=== PATIENT | male | born 1985 | race Caucasian/White ===

== ENCOUNTER 2024-12-24 11:07 | Outpatient (CLI) | payer OTHER, SELFPAY ==
--- NOTE | 2024-12-24 11:00 | RT.EKG_ITS ---
APPROVED REPORT Exam: Resting ECG Reason for Exam: Dizziness Patient Location: O HR:82 bpm ECG Measurements Heart Rate 82 AXIS LA 137 P 45 QRSd 81 QRS 60 QT 342 T 33 QTc 400 Conclusion Sinus rhythm...normal P axis, V-rate 50- 99 Ventricular premature complex...V complex w/ short R-R interval Otherwise normal ECG
== END 2024-12-24 11:08 | disposition home or self-care (01) ==
LOC: DI.CM 11:08
PROVIDERS: Visit Provider Physician Assistant
DX: R07.89 Other chest pain (principal); R42 Dizziness and giddiness
CPT/HCPCS: 93010

== ENCOUNTER 2024-12-24 12:02 | Emergency (ER) | payer OTHER, SELFPAY ==
[2024-12-24] VITALS (7 sets, daily range): BP systolic 122–138; BP diastolic 76–85; PULSE 73–91; RESP 16; TEMP 36.9–37.1; O2SAT 93–97
--- NOTE | 2024-12-24 12:15 | RT.EKG_ITS ---
APPROVED REPORT Exam: Resting ECG Reason for Exam: dizziness Patient Location: E HR:81 bpm ECG Measurements Heart Rate 81 AXIS WA 145 P 36 QRSd 80 QRS 57 QT 330 T 46 QTc 385 Conclusion Sinus rhythm...normal P axis, V-rate 60- 99 ST elev, probable normal early repol pattern...ST elevation, age<55
--- NOTE | 2024-12-24 14:35 | DI.US_ITS ---
Exam(s) US LOWER EXTREMITY VENOUS LT EXAM: US LOWER EXTREMITY VENOUS LT CLINICAL HISTORY: left leg swelling. TECHNIQUE: Lower extremity venous ultrasound performed using grayscale, color- flow, and spectral Doppler analysis. COMPARISON: No exams were available for comparison FINDINGS: The common femoral, femoral and popliteal veins demonstrate normal compressibility, augmentation, and color Doppler. The posterior tibial and peroneal veins are patent. No saphenous vein thrombosis is seen. There is a dilated superficial vein in the posterior calf in the area of the patient's pain which contains thrombus. No hematoma or Gee's cyst is seen. IMPRESSION: Superficial thrombophlebitis in the calf region.. No evidence of DVT. DATA REPOSITORY:
[2024-12-24 15:51] LABS: Abs Immature Grans 0.02 10^3/uL (0.0-0.06); HCT 44.0 % (40.0-50.0); HGB 15.4 g/dL (13.5-17.5); Immature Grans % 0.2 %; MCH 31.0 pg (27.0-33.0); MCHC 35.0 % (32.0-36.0); MCV 89 fL (80-95); MPV 8.8 fL (8.0-11.0); Platelet Count 201 10^3/uL (130-400); RBC 4.96 10^6/uL (4.36-5.78); RDW 12.1 % (11.8-14.1); RDW-SD 39.6 fL; WBC 8.87 10^3/uL (4.4-10.8)
--- NOTE | 2024-12-24 15:52 | W.ED.GENAD ---
Discharge Plan Disposition Patient Disposition: Home Condition: Good Discharge Details Clinical Impression: Near syncope, Dehydration, Superficial thrombophlebitis Primary Care Provider: Unknown,Unknown ED Provider: Philippe Burden Home Meds and New Rx's Prescriptions: New cephalexin 500 mg capsule 500 mg PO QID 5 Days Qty: 20 0RF Discharge Instructions Instructions: Superficial vein phlebitis and thrombosis, Near Fainting Additional Instructions: At this time your CT scan results show no evidence of blood clot or other significant abnormality. Your laboratory workup is otherwise reassuring. I am concerned that you may have had mild dehydration which could be causing your symptoms. However there is always still concern that there could be a mild cardiac change. Our respiratory therapy department will contact you to follow-up to have a 48-hour heart monitor to make sure there is no funny heart dysrhythmias. Additionally, you do have evidence of mild asthma on my exam. Please take the inhaler, 1 to 2 puffs every 6 hours as needed for shortness of breath. Please follow-up closely with your primary care provider for reassessment. In addition to this, you also have superficial thrombophlebitis which are small clots in your varicose veins. Please apply heat/warm compresses to these to help them reabsorb. Take Tylenol and Motrin as needed for pain. You can take a 325 aspirin daily for the next week to help them reabsorb as well. However this will make you bleed slightly more easily. Please take the antibiotic Keflex to help with any early infection that can occur from these. If you notice any worsening of your symptoms, or any new symptoms such as vomiting, diarrhea, fever, chills, shortness of breath, chest pain, numbness, weakness, or fainting , please return immediately to the emergency department for reevaluation. Please follow up with your primary care provider as soon as possible for reassessment and reevaluation. As always, it was a pleasure participating in your medical care today. Discharge Orders Other Ambulatory Orders: Holter Monitor (Routine) Timeframe: 1 Week Facility: [facility] - Location: Respiratory Therapy Ordered By: Philippe Burden HPI General Date/Time Provider Initiated Documentation: 12/24/24 12:34. HPI Narrative: This is a pleasant 39-year-old male with no significant past medical history but strong family history of coronary artery disease, pulmonary emboli, neurofibromatosis, who presents today for evaluation of left leg pain and dizziness and lightheadedness. Patient states that for the past week or so he has been getting somewhat dizzy and lightheaded. It can occur at rest, or while performing activities. There does not appear to be a specific cause. 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 He is worried he may be somewhat dehydrated. He does have a chronic left sided varicose vein, and has noticed that over the last few days there have been a few spots that have become inflamed and swollen and tender. In addition to this over the last 24 hours he has noticed another area of swelling in the left calf which is also somewhat tender. He denies any actual syncope. He denies any severe tunnel vision. He denies any trauma to the head. He denies any chest pain or shortness of breath. No acute focal numbness or tingling in the past week. He denies any other complaints at this time. He denies a family history of sudden cardiac at a young age or with activity. Related Data Home Medications ?Medication ?Instructions ?Recorded ?Confirmed cephalexin 500 mg capsule 500 mg PO QID 5 days #20 caps 12/24/24 Previous Rx's ?Medication ?Instructions ?Recorded cephalexin 500 mg capsule 500 mg PO QID 5 days #20 caps 12/24/24 Allergies Allergy/AdvReac Type Severity Reaction Status Date / Time No Known Allergies Allergy Verified 12/24/24 12:32 General Stated Complaint: Dizzy/Sync JOHN: 3 Exam Narrative Exam Narrative: 1.Const: Well-nourished, Well-developed, appearing stated age 2.Eyes: PERRL, no conjunctival injection, and symmetrical lids. 3.ENT: Atraumatic external nose and ears. Moist MM. Neck: Symmetric, trachea midline, No thyromegaly. 4.CVS: +S1/S2, Peripheral pulses 2+ and equal in all extremities. Brisk capillary refill in all extremities. 5.RESP: Unlabored respiratory effort. Minimal wheeze, but no rales or rhonchi. 6.GI: Soft, Nontender/Nondistended, No hepatosplenomegaly. No guarding or rebound. 7.MSK: Normocephalic/Atraumatic, Extremities w/o deformity or ttp No cyanosis or clubbing, Normal movement of all extremities. Patient's left lower extremity does demonstrate a varicosity that goes essentially from his ankle all the way up proximal to his knee. There are a few spots that are swollen and tender with minimal erythema. There is also an area of more generalized tenderness and swelling of the posterior calf. No other abnormalities otherwise. Pulses are intact and equal throughout. 8.Skin: Warm, Dry. No rashes or lesions. 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 Sensation grossly intact, no focal neurologic deficits. 10.Psych: (AAO) x3. Appropriate mood and affect Course Vital Signs Vital signs: Vital Signs Temperature 37.1 C 12/24/24 12:27 Pulse 91 H 12/24/24 12:27 Respiratory Rate 16 12/24/24 12:27 Blood Pressure 122/76 12/24/24 12:27 Pulse Oximetry 93 12/24/24 12:27 Temperature 37.1 C 12/24/24 12:27 Temperature Source Oral 12/24/24 12:27 Pulse 91 H 12/24/24 12:27 Respiratory Rate 16 12/24/24 12:27 Blood Pressure 122/76 12/24/24 12:27 Pulse Oximetry 93 12/24/24 12:27 Lab/Test Results Lab/Test Results: Laboratory Tests Range/Units 12/24/24 13:56 WBC (4.4-10.8) 10^3/uL 8.87 RBC (4.36-5.78) 10^6/uL 4.96 Hgb (13.5-17.5) g/dL 15.4 Hct (40.0-50.0) % 44.0 MCV (80-95) fL 89 MCH (27.0-33.0) pg 31.0 MCHC (32.0-36.0) % 35.0 RDW (11.8-14.1) % 12.1 Plt Count (130-400) 10^3/uL 201 MPV (8.0-11.0) fL 8.8 Immature Gran % % 0.2 Neutrophils % % 72.2 Lymphocytes % % 20.0 Monocytes % % 5.5 Eosinophils % % 1.6 Basophils % % 0.5 Nucleated RBC % (0.0-0.3) % 0.0 Absolute Neutrophils (1.2-6.7) 10^3/uL 6.41 Absolute Lymphocytes (1.2-3.4) 10^3/uL 1.77 Absolute Monocytes (0.1-0.8) 10^3/uL 0.49 Absolute Eosinophils (0.0-0.7) 10^3/uL 0.14 Absolute Basophils (0.0-0.2) 10^3/uL 0.04 Medical Decision Making This is a pleasant 39-year-old male with no significant past medical history but strong family history of coronary artery disease, pulmonary emboli, neurofibromatosis, who presents today for evaluation of left leg pain and dizziness and lightheadedness. Patient states that for the past week or so he has been getting somewhat dizzy and lightheaded. It can occur at rest, or while performing activities. There does not appear to be a specific cause. 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 He is worried he may be somewhat dehydrated. He does have a chronic left sided varicose vein, and has noticed that over the last few days there have been a few spots that have become inflamed and swollen and tender. In addition to this over the last 24 hours he has noticed another area of swelling in the left calf which is also somewhat tender. He denies any actual syncope. He denies any severe tunnel vision. He denies any trauma to the head. He denies any chest pain or shortness of breath. No acute focal numbness or tingling in the past week. He denies any other complaints at this time. He denies a family history of sudden cardiac at a young age or with activity. Exam demonstrates evidence to suggest superficial phlebitis in the left lower extremity. Ultrasound was performed, and radiology confirms a superficial thrombophlebitis but no evidence of DVT. The patient's lightheadedness and dizziness is concerning for dehydration, but differential also includes electrolyte abnormality. Less likely pulmonary embolism, cardiac strain, or ACS or thyroid dysfunction. Will rehydrate, check for these abnormalities, monitor closely and reassess. If findings returned unremarkable, I do feel the patient would benefit from an outpatient Holter monitor. Additionally he does have a wheeze which is very mild, and he is a smoker. We will recommend albuterol for home. 5:52 PM Laboratory workup has returned, patient has no white count bandemia or left shift. Ultrasound shows no evidence of DVT but does show superficial thrombophlebitis. D-dimer was elevated at 526, but because of his age, the findings on his leg, utilizing the years algorithm he could not be ruled out. CTA was ordered and shows no evidence of pulmonary embolism. Electrolytes and serial troponins are all normal. Thyroid function normal. Suspect dehydration to be a notable component of his symptoms of lightheadedness. No neurologic abnormality to suggest acute intercranial abnormality or deficit. Will recommend NSAID therapy for his phlebitis. Will give short course of antibiotics to prevent any subsequent infection from the thrombophlebitis. CTA shows no evidence of acute process PE or other abnormality. Patient otherwise stable for discharge. Will give Holter monitor and albuterol for home use. I have extensively reviewed the treatment plan and discharge instructions with the patient. I have addressed all patient concerns at this time. The patient was made aware of what symptoms to monitor for that would warrant a return to the emergency department. Discussed the plan with the patient, they demonstrate verbal understanding and agreement with our assessment and plan at this time. The documentation in this chart was dictated using [employer] dictation software. Please excuse any dictation errors. FINDINGS: The common femoral, femoral and popliteal veins demonstrate normal compressibility, augmentation, and color Doppler. The posterior tibial and peroneal veins are patent. No saphenous vein thrombosis is seen. There is a dilated superficial vein in the posterior calf in the area of the patient's pain which contains thrombus. No hematoma or Gee's cyst is seen. IMPRESSION: Superficial thrombophlebitis in the calf region.. No evidence of DVT. FINDINGS: Tracheobronchial tree: Patent where visualized. No bronchiectasis. Pulmonary parenchyma: No consolidation or dominant measurable mass. No architectural distortion. Pulmonary Arteries: No evidence of filling defect to suggest pulmonary emboli. Mediastinum and Preethi: No dominant adenopathy or fluid collection. The esophagus is unremarkable. There is a moderate size hiatal hernia. Visualized thyroid gland: Unremarkable. Pleura: No effusion or pneumothorax. Heart: The heart is not dilated. No coronary artery calcifications are seen. No pericardial effusion. Aorta: Thoracic aorta non-dilated. Due to the timing of the bolus, there is suboptimal opacification of the thoracic aorta. No gross abnormalities identified. Upper abdomen: Unremarkable. Soft tissues: Unremarkable. Bones: Within normal limits for the patient's age. IMPRESSION: 1. There is no evidence of a pulmonary embolism or thoracic aortic aneurysm. 2. No acute pulmonary process. PFSH All Active Problems (Updated 12/24/24 @ 17:58 by Philippe Burden DO) Superficial thrombophlebitis (Acute) Dehydration (Acute) Near syncope (Acute) Social History Smoking/Tobacco Use Status: Current every day Tobacco Type: cigarettes Smoking risk assessment performed?: Yes Alcohol Intake: current Alcohol Intake frequency: a few times a week Drug use: Daily Substance use type: marijuana Housing: house Do you feel safe at home: Yes Do you feel safe in your relationship?: Yes
[2024-12-24] MEDS: Normal Saline 1,000 ML 1000 ML IV (15:53)
[2024-12-24 16:17] LABS: D-Dimer 526 ng/mlFEU (<500)
[2024-12-24 16:31] LABS: ALT 56 U/L (16-63); AST 20 U/L (15-37); Albumin 4.0 g/dL (3.4-5.0); Alkaline Phosphatase 85 U/L (46-116); Anion Gap 8.0 mmol/L (3-11); BUN 8 mg/dL (7-18); Bilirubin, Total 0.7 mg/dL (0.2-1.0); CO2 28.0 mmol/L (21.0-32.0); Calcium 9.1 mg/dL (8.5-10.1); Chloride 106 mmol/L (98-107); Estimated GFR 112.11 (mL/min/1.73m2); Glucose 92 mg/dL (74-106); NT-proBNP 130 pg/mL (<300); Potassium 4.1 mmol/L (3.5-5.1); Sodium 142 mmol/L (136-145); TSH (W/Ref FT4) 0.57 uIU/mL (0.36-3.74); Total Protein 7.4 g/dL (6.4-8.2); Troponin I 4 ng/L (<or=76)
--- NOTE | 2024-12-24 16:45 | DI.CT_ITS ---
Exam(s) CT CHEST PE CTA EXAM: CT CHEST PE CTA CLINICAL HISTORY: elevated dimer, eval for PE. TECHNIQUE: Imaging Protocol: Axial CT angiography was performed with multi- slice acquisition and multi-planar and/or 3D reconstructions. Lung Computer Aided Detection (CAD) was utilized. CONTRAST MATERIAL: Intravenous: Omnipaque 350 contrast volume:100 mL COMPARISON: No exams were available for comparison FINDINGS: Tracheobronchial tree: Patent where visualized. No bronchiectasis. Pulmonary parenchyma: No consolidation or dominant measurable mass. No architectural distortion. Pulmonary Arteries: No evidence of filling defect to suggest pulmonary emboli. Mediastinum and Preethi: No dominant adenopathy or fluid collection. The esophagus is unremarkable. There is a moderate size hiatal hernia. Visualized thyroid gland: Unremarkable. Pleura: No effusion or pneumothorax. Heart: The heart is not dilated. No coronary artery calcifications are seen. No pericardial effusion. Aorta: Thoracic aorta non-dilated. Due to the timing of the bolus, there is suboptimal opacification of the thoracic aorta. No gross abnormalities identified. Upper abdomen: Unremarkable. Soft tissues: Unremarkable. Bones: Within normal limits for the patient's age. IMPRESSION: 1. There is no evidence of a pulmonary embolism or thoracic aortic aneurysm. 2. No acute pulmonary process. RADIATION DOSE DELIVERED: 245.74mGy.cm Total DLP DATA REPOSITORY: All CT scans at this facility are submitted to the National Radiology Data Registry (NRDR) Dose Index Registry (DIR) with the [employer] (ACR). RADIATION OPTIMIZATION: All CT scans at this facility use at least one of these dose optimization techniques: automated exposure control; mA and/or kV adjustment per patient size (includes targeted exams where dose is matched to clinical indication); or iterative reconstruction.
[2024-12-24] MEDS: Omnipaque 350 MG/ML 100 ML BTL IJ (16:59)
[2024-12-24] MEDS: Normal Saline - Diluent 50 ML VIAL IJ (16:59)
[2024-12-24] MEDS: Normal Saline Flush 10 ML SYR IVP (17:00)
[2024-12-24 17:23] LABS: Troponin I 4 ng/L (<or=76)
[2024-12-24] MEDS: Albuterol HFA 8 GM 60 PUFF INH IH (18:21)
== END 2024-12-24 18:28 | disposition home or self-care (01) ==
PROVIDERS: Emergency Provider Student in an Organized Health Care Education/Training Program
DX: M79.605 Pain in left leg; I82.402 Acute embolism and thrombosis of unspecified deep veins of left lower extremity; R42 Dizziness and giddiness; Z72.0 Tobacco use
CPT/HCPCS: 36415; 71275; 80053; 93005; 96360; 99284; 83880; 84443; 84484; 85025; 85379; 93010; 93225; 93971; J3490

== ENCOUNTER 2024-12-31 08:04 | Outpatient (RCR) | payer OTHER, SELFPAY ==
--- NOTE | 2025-01-05 13:58 | W.HOLTRPT ---
Date of service: 01/05/25 Time of Service: 13:58 Holter Monitor Report Referring Provider:: Philippe Burden Indications:: Syncope Holter Monitor Note: This is a 48-hour Holter monitor. Rhythm throughout was sinus with an average heart rate of 98. Minimum was 57, maximum 149. There are moderately frequent ventricular ectopic beats comprising 10% of total There are very rare atrial premature beats. There is no atrial fibrillation, no high-grade AV block, no pauses greater than 3 seconds. Patient's symptoms were reported corresponding both to sinus rhythm and to rare PVCs
== END 2025-01-10 23:59 | disposition home or self-care (01) ==
LOC: CARDOPNVT 08:04
PROVIDERS: Visit Provider Internal Medicine Cardiovascular Disease
DX: R55 Syncope and collapse (principal)
CPT/HCPCS: 93225; 93226